=== PATIENT | male | born 1960 | race Hispanic/Latino ===

== ENCOUNTER 2018-11-13 06:33 | Day surgery (SDC) | payer OTHER ==
[2018-11-12 14:37] VITALS: BP 122/82
[2018-11-12 14:43] LABS: BASOPHILS % (AUTO) 0.8 % (0.0-5.0); EOSINOPHILS % (AUTO) 11.4 % (0.0-8.0); HEMATOCRIT 42.5 % (42-54); LYMPHOCYTES % (AUTO) 31.9 % (21.0-51.0); MEAN CORPUSCULAR HEMOGLOBIN 30.3 pg (27.0-33.0); MONOCYTES % (AUTO) 5.3 % (3.0-13.0); NEUTROPHILS % (AUTO) 50.6 % (40.0-77.0); PLATELET COUNT (AUTO) 165 K/uL (130-400); RED BLOOD CELL COUNT(AUTO) 4.77 MIL/uL (4.50-6.20); RED CELL DISTRIBUTION WIDTH 13.9 % (11.0-15.5); WHITE BLOOD COUNT (AUTO) 7.7 K/uL (4.8-10.8)
[2018-11-12 15:12] LABS: POTASSIUM 3.9 mmol/L (3.5-5.1)
[~2018-11-13] VITALS: Ht 172.7 cm; Wt 79.7 kg
[2018-11-13] VITALS (16 sets, daily range): BP systolic 108–147; BP diastolic 63–89
[~2018-11-13 06:33] MED LIST: CHOL100040 PO; CYAN-35 PO; OMEP20CA10 PO; OXYB5TAB10 PO; PARO40TA72 PO; TAMS0.4C32 PO
[2018-11-13] MEDS ORDERED: LACTATED RINGERS 1000ML 1,000 ML IV ONE (07:06)
[2018-11-13] MEDS: CEFAZOLIN SODIUM 1 GM VIAL IVP PRN ×2 (07:10→09:24)
[2018-11-13] MEDS ORDERED: MIDAZOLAM HCL 1 MG/ML 2ML VIAL ONE (09:14)
[2018-11-13] MEDS ORDERED: LIDOCAINE PF 2% 5ML ABBOJECT ONE (09:23)
[2018-11-13] MEDS ORDERED: PROPOFOL 10 MG/ML 20ML VIAL IV ONE (09:23)
[2018-11-13] MEDS ORDERED: ONDANSETRON HCL 4 MG/2 ML VIAL ONE (09:23)
[2018-11-13] MEDS ORDERED: DEXAMETHASONE SOD PHOSPHATE 10MG/ML 1ML VIAL ONE (09:23)
[2018-11-13] MEDS ORDERED: FENTANYL CITRATE PF 50 MCG/1 ML 2ML VIAL ONE (09:24)
[2018-11-13] MEDS ORDERED: EPHEDRINE SULFATE 50 MG/ML AMPULE ONE (09:40)
[2018-11-13] MEDS ORDERED: NAPR-1192 PO (10:17)
[2018-11-13] MEDS ORDERED: CEPH500B PO (10:17)
[2018-11-13] MEDS ORDERED: TYL3 PO (10:17)
--- NOTE | 2018-11-13 12:30 | NUR ---
STATES HAS CRUTCHES AT HOME
== END 2018-11-13 13:00 | disposition home or self-care (01) ==
LOC: DAH 06:33
PROVIDERS: ATTEND Orthopaedic Surgery
DX: M23.222 Derangement of posterior horn of medial meniscus due to old tear or injury, left knee (principal); M22.42 Chondromalacia patellae, left knee; Z79.899 Other long term (current) drug therapy; K21.9 Gastro-esophageal reflux disease without esophagitis; D69.6 Thrombocytopenia, unspecified; F32.9 Major depressive disorder, single episode, unspecified; E03.9 Hypothyroidism, unspecified; G47.30 Sleep apnea, unspecified; H04.129 Dry eye syndrome of unspecified lacrimal gland; Z98.890 Other specified postprocedural states; Z83.3 Family history of diabetes mellitus; Z80.9 Family history of malignant neoplasm, unspecified; G89.29 Other chronic pain
CPT/HCPCS: 29881; 36415; 80048; 85025; A4218; A4606; A4649 ×2; A4930; A6223; J0690; J1100; J2001; J2250; J2405; J2704; J3010; J3490; J7120